=== PATIENT | male | born 1945 | race Caucasian/White ===

== ENCOUNTER → 2019-05-06 14:30 | Outpatient (CLI) | payer MEDICARE, MEDICAID, SELFPAY ==
[2019-05-06 14:23] VITALS: BMI 27.3
--- NOTE | 2019-05-06 14:33 | RAD_ITS ---
STUDY: X-RAY - CERVICAL SPINE REASON FOR EXAM: Male, 73 years old. Left neck and shoulder pain. TECHNIQUE: 4 view(s) of the cervical spine were obtained. COMPARISON: None FINDINGS: There are degenerative changes of the anterior atlantoaxial articulation. Normal odontoid process. There is straightening of the normal cervical lordosis. There is multi-level endplate spondylosis. There is multi-level degenerative disc disease with multilevel disc space narrowing. Mild nonspecific narrowing of the neural vertebral foramen. Nonspecific bilateral apophyseal hypertrophy. Surgical clips along the right neck demonstrated. Calcification within the soft tissues along the left paraspinal cervical region. There is no demonstrated fracture of the cervical spine. RAD/Cerv Spine 4 or 5 Views IMPRESSION: Straightening of the physiological cervical lordosis which may be due to muscle spasm, degenerative disease or positioning. Underlying degenerative disease with no acute fracture or subluxation. Electronically Signed: Janay Hill MD at 21:23 EST , Service support ,
--- NOTE | 2019-05-06 14:33 | RAD_ITS ---
STUDY: X-RAY - LEFT SHOULDER REASON FOR EXAM: Male, 73 years old. Left neck and shoulder pain. TECHNIQUE: 4 view(s) of the shoulder. COMPARISON: None. FINDINGS: There is mild degenerative arthrosis of the glenohumeral articulation. There is degenerative arthrosis of the acromioclavicular joint without inferior osseous spur formation. Normal acromion. Normal humeral head and visualized proximal humerus. The soft tissue structures are unremarkable. There is no demonstrated fracture. Normal visualized pulmonary apex. RAD/Shoulder min 2 Views IMPRESSION: Mild degenerative disease. No acute fracture or subluxation. Electronically Signed: Janay Hill MD at 21:22 EST , Service support ,
== END ==
PROVIDERS: Family Provider Family Medicine; PCP Family Medicine; Referring Provider Orthopaedic Surgery; Visit Provider Orthopaedic Surgery
DX: M54.2 Cervicalgia (principal); M79.602 Pain in left arm
CPT/HCPCS: 72050; 73030

== ENCOUNTER 2019-06-12 14:27 | Emergency (ER) | payer MEDICARE, MEDICAID, SELFPAY ==
[2019-06-12 14:27] VITALS: BMI 27.3
[2019-06-12 14:28] VITALS: BP 132/69; PULSE 66; RESP 18; TEMP 35.6; O2SAT 98; BMI 28.0
[2019-06-12] MEDS: Ipratropium/Albuterol Sulfate 3 ML AMPUL.NEB INHALATION (15:19)
[2019-06-12 15:20] VITALS: O2SAT 97
[2019-06-12 15:25] VITALS: PULSE 63; RESP 16; O2SAT 97
--- NOTE | 2019-06-12 15:33 | RAD_ITS ---
STUDY: X-RAY CHEST REASON FOR EXAM: Male, 73 years old. SOB, COUGH; -- CAD, STENTS; H/O TIA TECHNIQUE: PA and lateral views of the chest. COMPARISON: Comparison is made with prior examination dated March 08, 2017. FINDINGS: Azygos lobe in the right apex. Hyperinflation. The lungs are clear. There is no demonstrated pleural abnormality. Normal size heart. Normal mediastinum and himanshu. Normal visualized pulmonary arteries. Normal visualized aortic arch and descending thoracic aorta. There are diffuse degenerative changes of the visualized thoracic spine. Increased kyphosis. Normal visualized ribs, clavicles, and shoulders. There is no demonstrated abnormality of the visualized soft tissue structures of the upper abdomen. RAD/Chest PA and Lateral IMPRESSION: No acute abnormality is seen. Electronically Signed: Robson Rodriguez, at 15:53 EST , Service support ,
[2019-06-12 15:42] LABS: Absolute Neutrophil Count 8.2 X10^3/uL (2.0-7.7); Basophil# 0.04 X10^3/uL; Basophil% 0.3 % (0-1); Eosinophil# 0.52 X10^3/uL; Eosinophils% 4.1 % (0-5); Hematocrit 47.8 % (40-54); Hemoglobin 15.8 g/dL (13.0-16.5); Lymphocyte % 17.2 % (19-41); Mean Corp Hgb Conc 33.1 g/dL (32-36); Mean Corpuscular Hgb 29.5 pg (27.0-32.0); Mean Corpuscular Volume 89.3 fL (80-94); Monocyte# 1.54 X10^3/uL; Monocyte% 12.1 % (0-10); NRBC Flagged by Analyzer 0 % (0-5); Neutrophil # 8.18 X10^3/uL (2.7-7.7); Neutrophil % 64.1 % (47-70); POSITIVE DIFFERENTIAL YES; Platelet Count 189 K/mm3 (150-450); RBC Distribution Width CV 13.2 % (11.6-14.6); RBC Distribution Width SD 42.7 fl (35.1-43.9); Red Blood Count 5.35 M/mm3 (4.6-6.2); White Blood Count 12.8 K/mm3 (4.4-11.0)
--- NOTE | 2019-06-12 15:44 | ED.VISSUMM ---
- ER Visit Summary Date of Service: 06/12/19 Chief Complaint: Bronchitis History of Present Illness: The patient is a 73 M who presents with bronchitis that is been getting worse over the past 10 days. Patient completed a 10-day course of Levaquin. Patient is also on prednisone and Tessalon Perles. Patient states he feels like he cannot get enough air and is having shallow respirations. Patient states this has been constant. Patient admits to some rhinorrhea. Patient states he is coughing up some yellow sputum. Patient states he gets intermittent dizziness and weakness at times. Physical Examination: Vital signs are stable. Patient is afebrile. Patient is in no acute distress. Oral mucosa is pink and moist. Neck is supple. Trachea is midline. There is no JVD. Heart was regular rate and rhythm. Lungs showed expiratory wheezing and rhonchi. There is good respiratory effort. There are no retractions. Abdomen is soft and nontender. Cranial nerves II through XII are intact. There are no focal motor or sensory deficits noted. Extremities are intact. There is no calf tenderness or edema. Test Results: CBC shows a slight leukocytosis of 12.8. Basic metabolic profile showed creatinine 1.52. This was essentially unchanged. Urinalysis does not show any evidence of urinary tract infection. PA and lateral chest x-ray was obtained. There is no acute cardiopulmonary process. This was interpreted by the radiologist and myself. Emergency Department Course and Treatment: Patient was given a DuoNeb aerosol here. Patient's wheezing improved on reexamination. Patient was given a dose of albuterol. Patient has albuterol inhaler at home. I discussed with the patient several times about him not needing an antibiotic since he finished Levaquin which is an appropriate antibiotic for lower respiratory tract infections. Patient was advised that this is most likely a viral infection and that further antibiotics are not necessary. Patient was instructed to finish his prednisone as prescribed. Patient was instructed to continue his inhaler as needed. Patient was instructed to take his Tessalon Perles as needed. Patient was instructed to follow-up with his primary care physician in 3 to 5 days. Patient understood and was agreeable with the plan. All questions were answered. Disposition: Discharge home Impression: Viral bronchitis This note was generated with [email or web address] dictation software. It may contain incorrect words, spelling, and punctuation that were not noted in review of the chart prior to signing ED Disposition - Plan for ED Patient: Disposition: Home or Assisted Living Diagnosis: Viral bronchitis Instructions: BRONCHITIS with Wheezing (Adult) Referrals: Polina Carolina [Primary Care Provider] - 3-5 Days Additional Instructions: You have a viral bronchitis. Antibiotics are not necessary. Take your inhaler as prescribed. Take your prednisone as prescribed. Follow-up with your primary care physician in 5 to 7 days. Return if worse in any way.
[2019-06-12 15:45] LABS: Differential Indicated SCAN CRITERIA MET
[2019-06-12 15:54] LABS: ALB/GLOB Ratio 1.2 RATIO (0.9-2.4); AST(SGOT) 44 U/L (15-37); Alanine Aminotransfer ALT/SGPT 58 U/L (16-61); Albumin, Serum 3.7 g/dL (3.2-5.0); Alkaline Phosphatase 68 U/L (45-117); Anion Gap 4 (5-15); BUN 18 mg/dL (7-18); BUN/Creat Ratio 11.8 RATIO (10-20); Calcium,Total 8.8 mg/dL (8.5-10.1); Chloride 107 mmol/L (98-107); Creatinine, Serum 1.52 mg/dL (0.70-1.30); EST Glomerular Filtration Rate 48 mL/min (>60); Est Glom Filt Rate - Afr Amer 58 mL/min (>60); Estimated Creatinine Clearance 41.99 ml/min; Globulin 3.1 g/dL (2.2-4.2); Glucose 101 mg/dL (74-106); Protein, Total 6.8 g/dL (6.4-8.2); Sodium Level 142 mmol/L (136-145)
[2019-06-12 16:21] LABS: Differential Comment SCANNED
[2019-06-12 16:54] LABS: Bacteria 0 SEEN /hpf (None Seen); Mucous, Urine 0 SEEN /hpf (<or=2+); Red Blood Cells-Urine 0 SEEN /hpf (0-5); White Blood Cells 0 SEEN /hpf (0-5)
[2019-06-12 17:09] LABS: Color, Urine Yellow (Yellow); Glucose, Dipstick Normal (Normal); Ketone-Dipstick Negative (Negative); Leukocyte Esterase-Dipstick Negative /ul (Negative); Nitrite-Dipstick Negative (Negative); Occult Blood-Urine Negative /ul (Negative); Protein-Dipstick 100 mg/dl (Negative); Specific Gravity, Urine 1.025 (1.002-1.030); Urine Bilirubin Dipstick Negative (Negative); Urine Clarity Clear (Clear); Urine Urobilinogen Normal (Normal)
[2019-06-12 17:19] VITALS: BP 162/75; PULSE 59; RESP 18; O2SAT 98
[2019-06-12 17:29] VITALS: PULSE 52; RESP 16; O2SAT 99
[2019-06-12] MEDS: Albuterol 2.5 MG/3 ML VIAL.NEB. INHALATION (17:29)
[2019-06-12 17:32] LABS: Squamous Epithelial Cells - UA 0-5 SEEN /hpf (0-5)
[2019-06-12 17:54] VITALS: BP 142/71; PULSE 61; RESP 16; O2SAT 98
== END 2019-06-12 17:55 | disposition home or self-care (01) ==
PROVIDERS: Emergency Provider Emergency Medicine; PCP Family Medicine; Referring Provider Family Medicine
DX: J20.8 Acute bronchitis due to other specified organisms (principal); I10 Essential (primary) hypertension
CPT/HCPCS: 71046; 80053; 81001; 85025; 94640; 99251; 99284; A4216; G0463